=== PATIENT | female | born 1940 | race Caucasian/White ===

== ENCOUNTER 2017-09-04 09:04 | Inpatient (IN) | payer OTHER ==
[~2017-09-04] VITALS: Ht 162.6 cm; Wt 56.0 kg
[2017-09-04 10:16] LABS: BASOPHIL % 0.2 % (0-2); PLATELET COUNT 328 x10^3mcL (130-400); RED CELL DISTRIBUTION WIDTH 13.6 % (11.5-14.5)
[2017-09-04 10:21] LABS: CARBON DIOXIDE 28.2 mmol/L (21-32); CHLORIDE SERUM 102 mmol/L (98-107); CREATININE SERUM 0.9 mg/dL (0.6-1.0); GLUCOSE SERUM 106 mg/dL (74-106); POTASSIUM SERUM 3.9 mmol/L (3.5-5.1); SODIUM SERUM 139 mmol/L (136-145)
[2017-09-04 10:33] LABS: ALKALINE PHOSPHATASE 56 U/L (46-116); ALT/SGPT 11 U/L (14-59); AMYLASE 114 U/L (25-115); AST/SGOT 9 U/L (15-37); BILIRUBIN TOTAL 0.4 mg/dL (0.20-1.00); CHOLESTEROL 163 mg/dL (<200); LIPASE 227 IU/L (73-393); T4(THYROXINE) 6.1 ug/dL (4.7-13.3); TOTAL PROTEIN, SERUM 7.8 g/dL (6.4-8.2)
[2017-09-04 10:34] LABS: HDL CHOLESTEROL 73 mg/dL (40-60)
[2017-09-04 10:45] LABS: UA SPECIFIC GRAVITY 1.025 (1.005-1.035); microscopic required? YES; urine erythrocyte TRACE (NEGATIVE)
[2017-09-04] MEDS ORDERED: CITALOPRAM20 M1 PO (16:10)
[2017-09-04] MEDS ORDERED: DEPAKOTE ER250 M1 PO (16:10)
[2017-09-04] MEDS ORDERED: BUSPIRONE HCL30 MG PO (16:10)
[2017-09-04] MEDS ORDERED: DONEPEZIL HYDRO10 M2 PO (16:11)
[2017-09-04] MEDS ORDERED: HALOPERIDOL2 MG PO (16:11)
[2017-09-04] MEDS ORDERED: ARTIFICIAL TEA1 EACH OP (16:11)
[2017-09-04 16:42] VITALS: BP 136/65
[2017-09-04 16:55] VITALS: Ht 162.6 cm; Wt 56.0 kg
[2017-09-04 17:22] LABS: MAGNESIUM 1.9 mg/dL (1.8-2.4); PHOSPHOROUS 3.8 mg/dL (2.5-4.9)
[2017-09-04 17:24] LABS: CHOLESTEROL/HDL RATIO 2.3
[2017-09-04] MEDS ORDERED: TRAZODONE50 M1 PO (19:10)
[2017-09-04 20:00] VITALS: BP 108/53
[2017-09-05 05:17] VITALS: BP 90/50
[2017-09-05 07:39] LABS: BASOPHIL % 0.1 % (0-2); PLATELET COUNT 276 x10^3mcL (130-400); RED CELL DISTRIBUTION WIDTH 13.6 % (11.5-14.5)
[2017-09-05 07:57] LABS: CALCIUM 8.5 mg/dL (8.5-10.1); CARBON DIOXIDE 22.5 mmol/L (21-32); CHLORIDE SERUM 105 mmol/L (98-107); CREATININE SERUM 0.8 mg/dL (0.6-1.0); GLUCOSE SERUM 118 mg/dL (74-106); MAGNESIUM 1.8 mg/dL (1.8-2.4); PHOSPHOROUS 3.6 mg/dL (2.5-4.9); POTASSIUM SERUM 3.8 mmol/L (3.5-5.1); SODIUM SERUM 139 mmol/L (136-145)
[2017-09-05 09:25] VITALS: BP 108/46
[2017-09-05 18:18] VITALS: BP 113/57
[2017-09-06 05:43] VITALS: BP 136/65
[2017-09-06 07:35] LABS: BASOPHIL % 0.4 % (0-2); PLATELET COUNT 320 x10^3mcL (130-400); RED CELL DISTRIBUTION WIDTH 13.9 % (11.5-14.5)
[2017-09-06 07:44] LABS: CALCIUM 8.8 mg/dL (8.5-10.1); CARBON DIOXIDE 26.7 mmol/L (21-32); CHLORIDE SERUM 111 mmol/L (98-107); CREATININE SERUM 0.8 mg/dL (0.6-1.0); GLUCOSE SERUM 93 mg/dL (74-106); MAGNESIUM 1.8 mg/dL (1.8-2.4); PHOSPHOROUS 3.3 mg/dL (2.5-4.9); POTASSIUM SERUM 4.2 mmol/L (3.5-5.1); SODIUM SERUM 148 mmol/L (136-145)
[2017-09-07 09:25] VITALS: BP 130/71
[2017-09-07] MEDS ORDERED: LAC PO (14:11)
[2017-09-07] MEDS ORDERED: LEVAQUIN750 MG PO (14:12)
[2017-09-07 15:35] VITALS: BP 130/71
== END 2017-09-07 16:34 | DRG 70 ==
LOC: ED 09:04 → MU 12:18 → DU 12:18 → MU 09-05 10:51
PROVIDERS: Emergency Medicine; Family Medicine; Student in an Organized Health Care Education/Training Program
DX: G93.41 Metabolic encephalopathy (principal); N17.0 Acute kidney failure with tubular necrosis; N39.0 Urinary tract infection, site not specified; F03.90 Unspecified dementia, unspecified severity, without behavioral disturbance, psychotic disturbance, mood disturbance, and anxiety; Z66 Do not resuscitate; M25.551 Pain in right hip; F32.9 Major depressive disorder, single episode, unspecified; D64.9 Anemia, unspecified; R31.9 Hematuria, unspecified
CPT/HCPCS: 83880; J0696; J1100; J1885; J7030; Q0092

== ENCOUNTER 2018-08-26 14:20 | Emergency (ER) | payer OTHER ==
[~2018-08-26] VITALS: Ht 167.6 cm; Wt 59.0 kg
[~2018-08-26 14:20] MED LIST: ARTIFICIAL TEA1 EACH OP; BUSPIRONE HCL30 MG PO; CITALOPRAM20 M1 PO; DEPAKOTE ER250 M1 PO; DONEPEZIL HYDRO10 M2 PO; HALOPERIDOL2 MG PO; LAC PO; LEVAQUIN750 MG PO; TRAZODONE50 M1 PO
[2018-08-26 14:24] VITALS: BP 131/83
== END 2018-08-26 17:26 | disposition home or self-care (01) ==
LOC: ED 14:20
DX: M54.9 Dorsalgia, unspecified (principal); W01.0XXA Fall on same level from slipping, tripping and stumbling without subsequent striking against object, initial encounter; Y93.89 Activity, other specified; Y92.89 Other specified places as the place of occurrence of the external cause; Y99.8 Other external cause status